=== PATIENT | male | born 1955 | race Caucasian/White ===

== ENCOUNTER 2024-06-30 08:14 | Outpatient (CLI) | payer OTHER, SELFPAY | END 2024-06-30 08:15 | disposition home or self-care (01) | LOC: WOUND 08:17 | PROVIDERS: PCP Nurse Practitioner Gerontology; Visit Provider Nurse Practitioner Family | DX: L89.893 Pressure ulcer of other site, stage 3 (principal); M13.871 Other specified arthritis, right ankle and foot | CPT/HCPCS: 11042; G0463 ==

== ENCOUNTER 2024-06-30 09:36 | Outpatient (CLI) | payer OTHER, SELFPAY ==
--- NOTE | 2024-06-30 09:45 | CRLHL7_ITS ---
For Patients: As a result of the Century Cures Act, medical imaging exams and procedure reports are released immediately into your electronic medical record. You may view this report before your referring provider. If you have questions, please contact your health care provider. Indication: Nonhealing wound of the 2nd digit. Technique: Three views of the right foot. Comparison: None. Findings: There is swelling of the 2nd toe soft tissues. Bone density is normal. No bony erosion or destruction is identified. No periosteal reaction is seen. The 2nd toe distal interphalangeal joint is flexed and suboptimally visualized. The 2nd toe PIP and MTP joints are preserved. 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 There is a soft tissue and bony bunion. There is a tiny plantar calcaneal spur. Impression: 1. Swelling of the 2nd toe soft tissues. No radiographic evidence of osteomyelitis. 2. Osteoarthritis of the great toe. Dictated by Jose De Jesus Dove MD @ 06/30/2024 3:16:32 PM (Electronically Signed)
== END 2024-06-30 09:37 | disposition home or self-care (01) ==
LOC: RAD 09:37
PROVIDERS: PCP Nurse Practitioner Gerontology; Visit Provider Nurse Practitioner Family
DX: L89.893 Pressure ulcer of other site, stage 3 (principal); M79.89 Other specified soft tissue disorders; M19.071 Primary osteoarthritis, right ankle and foot
CPT/HCPCS: 73630

== ENCOUNTER 2024-07-09 08:36 | Outpatient (CLI) | payer OTHER, SELFPAY | END 2024-07-09 08:37 | disposition home or self-care (01) | LOC: WOUND 08:37 | PROVIDERS: PCP Nurse Practitioner Gerontology; Visit Provider Nurse Practitioner Family | DX: M13.871 Other specified arthritis, right ankle and foot (principal); Z87.2 Personal history of diseases of the skin and subcutaneous tissue | CPT/HCPCS: G0463 ==